=== PATIENT | female | born 1930 | race Two or more races ===

== ENCOUNTER 2017-04-19 16:51 | Inpatient (IN) | payer OTHER ==
[~2017-04-19] VITALS: Ht 152.4 cm; Wt 47.1 kg
[~2017-04-19 16:51] MED LIST: GAB400C PO; LISI10TA6 PO; MIRT15TA3 PO; OXY20CRT PO
[2017-04-19 18:54] LABS: Urine Bilirubin Negative (Negative); Urine Blood Negative /uL (Negative); Urine Color Yellow (Yellow); Urine Glucose Normal (Normal); Urine Ketone Negative (Negative); Urine Nitrite Negative (Negative); Urine RBC 1 /hpf (0 - 4); Urine Urobilinogen Normal (Negative); Urine pH 6.5 (5.0-8.0)
[2017-04-19 19:08] LABS: Basophils # (auto) 0 uL; Basophils % (auto) 0.4 % (0.0-2.0); CONDITION Y; Eosinophils # (auto) 0.2 uL; Eosinophils % (auto) 2.1 % (0.0-7.0); Hematocrit 44.2 % (36.0-46.0); Hemoglobin 14.8 g/dL (12.2-16.2); Lymphocytes # (auto) 3.4 uL; Lymphocytes % (auto) 36.2 % (10.0-50.0); Mean Corpuscular Hemoglobin 30.5 pg (28.0-32.0); Mean Corpuscular Hgb Conc. 33.5 g/dL (32.0-36.0); Mean Corpuscular Volume 91.1 fL (80.0-100.0); Mean Platelet Volume 7.4 fL (7.4-10.4); Monocytes # (auto) 0.6 uL; Monocytes % (auto) 6.6 % (0.0-12.0); Neutrophils # (auto) 5.2 uL; Neutrophils % (auto) 54.7 % (37.0-80.0); Platelet Count (auto) 352 10^3/uL (140-450); Red Cell Distribution Width 13.7 % (11.6-16.0); White Blood Cell 9.5 10^3/uL (4.4-10.8)
[2017-04-19 19:26] LABS: Albumin 3.6 g/dL (3.4-5.0); Alkaline Phosphatase 81 U/L (45-117); Anion Gap 9 (5-15); Aspartate Aminotransferase 13 U/L (15-37); BUN/Creatinine Ratio 18.6; Bilirubin, Total 0.4 mg/dL (0.2-1.0); Blood Urea Nitrogen 16 mg/dL (7-18); Calcium 9.3 mg/dL (8.5-10.1); Carbon Dioxide 26 mmol/L (21-32); Chloride 101 mmol/L (98-107); GFR African American 80 mL/min; GFR Non-African American 66 mL/min; Glucose 86 mg/dL (74-106); Magnesium 2.2 mg/dL (1.6-2.6); Potassium 3.7 mmol/L (3.5-5.1); Sodium 136 mmol/L (136-145); Total Protein 8.2 g/dL (6.4-8.2)
[2017-04-19 22:00] VITALS: BP 128/64
[2017-04-20] MEDS ORDERED: ONDANSETRON HCL 4 MG/2 ML VIAL IV ONE (01:00)
[2017-04-20] MEDS ORDERED: SODIUM CHLORIDE 0.9% 1,000 ML IV ONE (01:00)
[2017-04-20] MEDS ORDERED: MORPHINE SULF INJ 2 MG/ML SYRINGE 1ML IV PRN (06:15)
[2017-04-20] MEDS: SODIUM CHLORIDE 0.9% 1,000 ML IV SCH ×3 (06:27→22:43)
[2017-04-20] MEDS: ONDANSETRON HCL 4 MG/2 ML VIAL IV PRN ×3 (09:36→22:42)
[2017-04-20] MEDS ORDERED: GABAPENTIN 400 MG CAP PO SCH (10:00)
[2017-04-20] MEDS: MIRTAZAPINE 30 MG TAB PO SCH (10:00)
[2017-04-20] MEDS: FAMOTIDINE (10MG/ML) 2ML VL IV SCH (10:00)
[2017-04-20] MEDS: LISINOPRIL 10 MG TAB PO SCH (10:00)
[2017-04-20 12:55] VITALS: BP 121/66
[2017-04-20] MEDS: KETOROLAC TROMETH 30 MG/ML 1ML VIAL IV PRN ×2 (13:10→22:41)
[2017-04-20] MEDS ORDERED: GASTROGRAFIN 120 ML SOL ONE (13:16)
[2017-04-20 14:46] LABS: Partial Thromboplastin Time 29.7 sec (22.64-33.71); Prothrombin Time 10.9 sec (9.37-12.3)
[2017-04-20 17:00] VITALS: BP 109/58
[2017-04-20 22:00] VITALS: BP 128/64
[2017-04-21] MEDS ORDERED: OXY5T PO (00:58)
[2017-04-21] MEDS ORDERED: METH10T PO (00:58)
[2017-04-21 05:00] VITALS: BP 137/61
[2017-04-21] MEDS: KETOROLAC TROMETH 30 MG/ML 1ML VIAL IV PRN (05:30)
[2017-04-21] MEDS: SODIUM CHLORIDE 0.9% 1,000 ML IV SCH ×2 (05:31→14:21)
[2017-04-21] MEDS: ONDANSETRON HCL 4 MG/2 ML VIAL IV PRN (05:35)
[2017-04-21 05:44] LABS: Basophils # (auto) 0.1 uL; Basophils % (auto) 1.3 % (0.0-2.0); CONDITION Y; Eosinophils # (auto) 0.1 uL; Eosinophils % (auto) 1.5 % (0.0-7.0); Hematocrit 38.3 % (36.0-46.0); Hemoglobin 12.9 g/dL (12.2-16.2); Lymphocytes # (auto) 1.5 uL; Lymphocytes % (auto) 27.8 % (10.0-50.0); Mean Corpuscular Hemoglobin 30.6 pg (28.0-32.0); Mean Corpuscular Hgb Conc. 33.7 g/dL (32.0-36.0); Mean Corpuscular Volume 90.8 fL (80.0-100.0); Mean Platelet Volume 7.5 fL (7.4-10.4); Monocytes # (auto) 0.4 uL; Monocytes % (auto) 8.5 % (0.0-12.0); Neutrophils # (auto) 3.2 uL; Neutrophils % (auto) 60.9 % (37.0-80.0); Platelet Count (auto) 246 10^3/uL (140-450); Red Cell Distribution Width 13.3 % (11.6-16.0); White Blood Cell 5.2 10^3/uL (4.4-10.8)
[2017-04-21 05:57] LABS: INR 1.01 (0.9-1.15); Partial Thromboplastin Time 28.9 sec (22.64-33.71)
[2017-04-21 05:59] LABS: Calcium 8.1 mg/dL (8.5-10.1); Potassium 3.9 mmol/L (3.5-5.1)
[2017-04-21 06:02] LABS: Albumin 2.7 g/dL (3.4-5.0)
[2017-04-21 06:21] LABS: BUN/Creatinine Ratio 17.9; Bilirubin, Total 0.4 mg/dL (0.2-1.0); Total Protein 6.2 g/dL (6.4-8.2)
[2017-04-21 08:00] VITALS: BP 135/66
[2017-04-21 09:00] VITALS: BP 135/66
[2017-04-21] MEDS: FAMOTIDINE (10MG/ML) 2ML VL IV SCH (10:00)
[2017-04-21] MEDS: MIRTAZAPINE 30 MG TAB PO SCH (10:00)
[2017-04-21] MEDS: LISINOPRIL 10 MG TAB PO SCH (10:00)
[2017-04-21 13:41] VITALS: BP 134/74
[2017-04-21] MEDS ORDERED: MORPHINE SULFATE 4 MG/ML SYRG IV PRN (14:00)
[2017-04-21] MEDS ORDERED: METHADONE HCL 10 MG TAB PO ONE (14:02)
[2017-04-21] MEDS ORDERED: METHADONE HCL 10 MG TAB PO SCH ×2 (14:04→22:00)
[2017-04-21] MEDS ORDERED: cefTRIAXone 1GM/50ML D5W 50 ML IV ONE (14:30)
[2017-04-21] MEDS ORDERED: OXYCODONE W/ ACETAMINOPHEN 5/325MG TABLET PO PRN (14:30)
[2017-04-21] MEDS ORDERED: SENNA 8.6 MG TAB PO ONE (16:15)
[2017-04-21] MEDS ORDERED: GOLYTELY 4L KIT PO ONE (16:30)
[2017-04-21 17:13] VITALS: BP 123/66
[2017-04-21 18:15] VITALS: BP 123/66
[2017-04-22] MEDS ORDERED: cefTRIAXone 1GM/50ML D5W 50 ML IV SCH (09:00)
== END 2017-04-21 20:55 | disposition home or self-care (01) | DRG 392 ==
LOC: ER 17:00 → OVERFLOW 17:01 → EAST 04-20 10:50 → WEST WING 04-20 13:06
PROVIDERS: ADMIT Family Medicine; ATTEND Internal Medicine Geriatric Medicine
DX: K59.03 Drug induced constipation (principal); F11.20 Opioid dependence, uncomplicated; N39.0 Urinary tract infection, site not specified; K56.69 Other intestinal obstruction; I11.9 Hypertensive heart disease without heart failure; K56.41 Fecal impaction; G62.9 Polyneuropathy, unspecified; M19.90 Unspecified osteoarthritis, unspecified site; M06.9 Rheumatoid arthritis, unspecified; T40.605A Adverse effect of unspecified narcotics, initial encounter; Z96.643 Presence of artificial hip joint, bilateral; I70.0 Atherosclerosis of aorta; Z90.49 Acquired absence of other specified parts of digestive tract
CPT/HCPCS: 36415; 71010; 74000; 74020; 74176; 80053; 81001; 82270; 82378; 83735; 84484; 85025; 85610; 85730; 96361; 96374; 96375; J0696; J1885; J2405